=== PATIENT | female | born 1985 | race Caucasian/White ===

== ENCOUNTER 2019-08-09 18:07 | Emergency (ER) | payer OTHER ==
[~2019-08-09] VITALS: Ht 162.6 cm; Wt 110.4 kg
--- NOTE | 2019-08-09 18:32 | NUR ---
PT BROUGHT BACK FROM TRIAGE WITH CHIEF COMPLAINT OF CASE SINCE MONDAY (HX SAME), HOWEVER TODAY DEVELOPED N/V, & BLOODY STOOL WITH INTERMITTENT SOB. ERMKristy LAW AT BEDSIDE FOR EVALUATION.
[2019-08-09] MEDS ORDERED: SODIUM CHLORIDE 0.9% 1,000 ML IV ONE (18:37)
--- NOTE | 2019-08-09 18:48 | NUR ---
REPORT TO PUNEET GLOVER
[2019-08-09] MEDS ORDERED: METOCLOPRAMIDE 5 MG/ML, 2ML ONE (18:50)
[2019-08-09] MEDS ORDERED: METOCLOPRAMIDE 5 MG/ML, 2ML IVPush ONE (19:00)
[2019-08-09] MEDS ORDERED: SODIUM CHLORIDE FLUSH 10ML SYR IVF ONE (19:00)
--- NOTE | 2019-08-09 19:10 | NUR ---
PT BACK FROM CT, 2 PIVS ATTEMPTED WITHOUT SUCCESS, PT STATES "I AM A HARD STICK," WILL HAVE ANOTHER RN ATTEMPT. PT COOPERATIVE AND CALM, C/O CASE
[2019-08-09] MEDS ORDERED: KETOROLAC 30 MG/1 ML ONE (19:28)
[2019-08-09] MEDS ORDERED: KETOROLAC 30 MG/1 ML IVPush ONE (19:30)
--- NOTE | 2019-08-09 19:30 | NUR ---
IV 20G ESTABLISHED TO Jered RENEE
[2019-08-09 19:31] LABS: MICROSCOPIC INDICATED
[2019-08-09 19:38] VITALS: BP 167/78
[2019-08-09 19:38] LABS: AMPHETAMINE SCREEN, URINE Negative (Negative); BARBITURATE SCREEN, URINE Negative (Negative); BENZODIAZEPINE SCREEN, URINE Negative (Negative); CANNABINOID SCREEN, URINE Positive (Negative); COCAINE SCREEN, URINE Negative (Negative); METHADONE SCREEN, URINE Negative (Negative); OPIATE SCREEN, URINE Negative (Negative)
[2019-08-09 19:38] LABS: ALANINE AMINOTRANSFERASE 43 U/L (12-78); ANION GAP 6 mmol/L (5-15); CALCIUM 9.2 mg/dL (8.5-10.1); CHLORIDE 112 mmol/L (98-107); CREATININE 0.55 mg/dL (0.55-1.02); D-DIMER 0.34 ug/mlFEU (0.00-0.52); INTERNATIONAL NORMALIZED RATIO 0.92 (0.93-1.1); PROTHROMBIN TIME 9.7 Seconds (9.6-11.5)
[2019-08-09 19:42] LABS: ALKALINE PHOSPHATASE 113 U/L (45-117); BILIRUBIN,TOTAL 0.1 mg/dL (0.2-1.0); TOTAL PROTEIN 6.5 g/dL (6.4-8.2); TROPONIN I < 0.015 ng/mL (0.000-0.045)
[2019-08-09 19:45] LABS: BASOPHILS # (AUTO) 0.09 x10^3/uL (0-0.1); BASOPHILS % (AUTO) 1 % (0-1); EOSINOPHILS % (AUTO) 5 % (1-7); LYMPHOCYTES % (AUTO) 38 % (22-44); MD SCAN; MEAN CORPUSCULAR HEMOGLOBIN 28.6 pg (27.0-34.8); MEAN CORPUSCULAR HGB CONC 32.9 g/dL (32.4-35.8); MEAN CORPUSCULAR VOLUME 86.9 fL (80-100); MEAN PLATELET VOLUME 9.6 fL (7.4-10.4); MONOCYTES # (AUTO) 0.64 x10^3/uL (0.2-0.8); MONOCYTES % (AUTO) 8 % (2-9); NEUTROPHILS # (AUTO) 4.19 x10^3/uL (1.8-6.8); NEUTROPHILS % (AUTO) 49 % (42-75); PLATELET COUNT 200 x10^3/uL (130-400); RED BLOOD COUNT 4.94 x10^6/uL (3.82-5.3); RED CELL DISTRIBUTION WIDTH 13.5 % (9.6-15.2)
--- NOTE | 2019-08-09 20:28 | NUR ---
MEDICAL RECORDS REQ FROM [facility].
--- NOTE | 2019-08-09 21:00 | NUR ---
PT ASSISTED TO RESTROOM, STEADY GAIT AND INDEPENDENT, PT BACK TO BED WITHOUT ISSUE, NAD NOTED AT THIS TIME, PT INFORMED SHE IS STILL HOLDING FOR INPATIENT BED
--- NOTE | 2019-08-09 21:20 | NUR ---
REPORT CALLED TO MICAELA GLOVER TO ASSUME CARE OF PT TRANSFERRING TO [facility]
--- NOTE | 2019-08-09 21:29 | NUR ---
tech to room for transport, reports that refuses to leave and states that he has to stay here because he does not have enough gas/funds to get home. Aware that during the current pandemic this is simply not an option and out visiting hours are 3pm to 8pm. Pt and have discussion then call that they are going to leave and go home, apparently now having enough gas/funds to get home. Dr Corcoran aware.
[2019-08-09] MEDS ORDERED: TEMAZEPAM 15 MG CAPSULE PO PRN (22:00)
[2019-08-09] MEDS ORDERED: ACETAMINOPHEN 325 MG TABLET PO PRN (22:00)
[2019-08-09] MEDS ORDERED: hydrALAzine 20 MG/ML, 1ML IVPush PRN (22:00)
[2019-08-09] MEDS ORDERED: ONDANSETRON 2MG/ML, 2ML IVPush PRN (22:00)
[2019-08-09] MEDS ORDERED: HYDROcodone/APAP 5/325 TABLET PO PRN (22:00)
[2019-08-09] MEDS ORDERED: ASA/APAP/ CAFFEINE TABLET PO PRN (22:00)
== END 2019-08-09 21:41 | disposition left against medical advice (07) ==
LOC: ED 20:37 → UNDOADMIN 20:42 → EDIP 20:42 → ED 21:41 → EDIP 21:56 → UNDOADMIN 21:56
DX: H53.2 Diplopia (principal); H53.8 Other visual disturbances; R11.2 Nausea with vomiting, unspecified; R51 Headache; K92.1 Melena; R06.02 Shortness of breath; R00.0 Tachycardia, unspecified; R05 Cough; I10 Essential (primary) hypertension; J45.909 Unspecified asthma, uncomplicated; F17.200 Nicotine dependence, unspecified, uncomplicated; Z90.89 Acquired absence of other organs; Z90.49 Acquired absence of other specified parts of digestive tract
CPT/HCPCS: 36415; 70450; 71045; 80053; 80307; 81001; 84484; 85025; 85379; 85610; 85730; 87086; 93005; 96361; 96374; 96375; 99285; J1885; J2765; J7030

== ENCOUNTER 2019-09-09 13:24 | Emergency (ER) | payer MEDICAID ==
[~2019-09-09] VITALS: Ht 162.6 cm; Wt 103.4 kg
[2019-09-09] MEDS ORDERED: ONDANSETRON ODT 4 MG ONE (14:18)
[2019-09-09] MEDS ORDERED: HYDROmorphone 1 MG/ML, 1ML INJ ONE ×2 (14:19→15:24)
[2019-09-09] MEDS ORDERED: ONDANSETRON ODT 4 MG PO ONE (14:30)
[2019-09-09] MEDS ORDERED: SODIUM CHLORIDE 0.9% 1,000ML IV ONE (14:30)
[2019-09-09] MEDS ORDERED: HYDROmorphone 1 MG/ML, 1ML INJ IV ONE ×2 (14:30→15:30)
--- NOTE | 2019-09-09 14:30 | NUR ---
pt presents to ED with c/o headache that has been constant since 08/2019, bilateral lower back pain that is chronic in nature, and new onset chest pain and sob ,since last night. pt also suffers from seizures which are chronic, 2 in last month. last was this am. pt states she takes medication for seizures but does not have a neurologist. pt denies injury/trauma. pt is a&ox4, resps even and unlabored. pt is able to speak in full sentences without difficulty. pt is neurologically intact, no focal deficits. pt placed on all monitors, pt is nsr on monitoring analyst without ectopy. piv placed, pt medicated per emar, tolerating well. significant other at bedside.
--- NOTE | 2019-09-09 15:23 | NUR ---
urine sample collected and sent to lab. pt reports headache/chest pain/ back pain is not improved s/p dilaudid, "it didn't touch it." BILLY Florence notified. report given back to primary RN Val who is resuming care.
[2019-09-09 15:30] LABS: MICROSCOPIC INDICATED
--- NOTE | 2019-09-09 15:30 | NUR ---
Report from Vickie GLOVER. Pt resting in bed, AMITA. Pt reports 8/10 CASE and low back pain. Pt medicated for continued pain per MAR, denies other needs.
[2019-09-09] MEDS ORDERED: METHOCARBAMOL 750 MG TABLET ONE (15:56)
[2019-09-09] MEDS ORDERED: METHOCARBAMOL 750 MG TABLET PO ONE (16:00)
--- NOTE | 2019-09-09 16:01 | NUR ---
Pt medicated for continued pain per MAR.
[2019-09-09] MEDS ORDERED: METOCLOPRAMIDE 5 MG/ML, 2ML ONE (16:54)
[2019-09-09] MEDS ORDERED: LORazepam 2 MG/ML, 1ML ONE (16:55)
[2019-09-09] MEDS ORDERED: LORazepam 2 MG/ML, 1ML IVPush ONE (17:00)
[2019-09-09] MEDS ORDERED: METOCLOPRAMIDE 5 MG/ML, 2ML IVPush ONE (17:00)
--- NOTE | 2019-09-09 17:02 | NUR ---
Pt states pain meds have worn off and is still having 8/10 CASE and low back pain. Pt also c/o itching, medicated per APR.
--- NOTE | 2019-09-09 17:05 | NUR ---
PA made aware of pt's request for additional pain medications.
[2019-09-09 17:45] VITALS: BP 111/74
== END 2019-09-09 17:50 | disposition home or self-care (01) ==
LOC: ED 17:10
DX: G43.909 Migraine, unspecified, not intractable, without status migrainosus (principal); R06.00 Dyspnea, unspecified; M54.9 Dorsalgia, unspecified; G89.29 Other chronic pain; R00.0 Tachycardia, unspecified; F17.210 Nicotine dependence, cigarettes, uncomplicated; I10 Essential (primary) hypertension
CPT/HCPCS: 71045; 81001; 93005; 96374; 96375; 96376; 99285; J1170; J2060; J2765; J7030; Q0162

== ENCOUNTER 2019-10-18 01:50 | Emergency (ER) | payer MEDICAID ==
[~2019-10-18] VITALS: Ht 162.6 cm; Wt 99.0 kg
[2019-10-18 01:54] VITALS: BP 102/72
--- NOTE | 2019-10-18 02:29 | NUR ---
Valerie jose in [facility] - 10/18/19 at 0312 by [facility] WITH K 2.2
--- NOTE | 2019-10-18 03:29 | NUR ---
THIS IS A 34Y F THAT COMES IN FOR C/O CASE, ABD PAIN, N/V, FLANK PAIN, SHAKES. PT RESTING ON GURNEY LIGHTS OFF SPOUSE AT BEDSIDE FOR SUPPORT. PT CONNECTED TO MONITORING, MD AT BEDSIDE FOR ASSESSMENT.
[2019-10-18] MEDS ORDERED: ONDANSETRON 2MG/ML, 2ML IVPush ONE (03:30)
[2019-10-18] MEDS ORDERED: KETOROLAC 30 MG/1 ML IVPush ONE (03:30)
[2019-10-18] MEDS ORDERED: KETOROLAC 30 MG/1 ML ONE (03:35)
[2019-10-18] MEDS ORDERED: ONDANSETRON 2MG/ML, 2ML ONE (03:35)
--- NOTE | 2019-10-18 03:48 | NUR ---
PT MEDICATED PER APR 10 RIGHTS VERIFIED, PT TOLERATED WELL.
[2019-10-18 03:51] LABS: BASOPHILS # (AUTO) 0.05 x10^3/uL (0-0.1); BASOPHILS % (AUTO) 0 % (0-1); EOSINOPHILS # (AUTO) 0.27 x10^3/uL (0-0.4); EOSINOPHILS % (AUTO) 2 % (1-7); LYMPHOCYTES # (AUTO) 4.12 x10^3/uL (1-3.4); LYMPHOCYTES % (AUTO) 31 % (22-44); MD NO; MEAN CORPUSCULAR HEMOGLOBIN 27.5 pg (27.0-34.8); MEAN CORPUSCULAR HGB CONC 32.1 g/dL (32.4-35.8); MEAN CORPUSCULAR VOLUME 85.9 fL (80-100); MEAN PLATELET VOLUME 8.3 fL (7.4-10.4); MONOCYTES # (AUTO) 1.15 x10^3/uL (0.2-0.8); MONOCYTES % (AUTO) 9 % (2-9); NEUTROPHILS # (AUTO) 7.56 x10^3/uL (1.8-6.8); NEUTROPHILS % (AUTO) 58 % (42-75); PLATELET COUNT 299 x10^3/uL (130-400); RED BLOOD COUNT 4.97 x10^6/uL (3.82-5.3); RED CELL DISTRIBUTION WIDTH 14.6 % (9.6-15.2)
[2019-10-18 04:03] LABS: ALBUMIN 2.9 g/dL (3.4-5.0); ANION GAP 7 mmol/L (5-15); CALCIUM 8.9 mg/dL (8.5-10.1); CHLORIDE 104 mmol/L (98-107)
[2019-10-18 04:09] LABS: ALANINE AMINOTRANSFERASE 90 U/L (12-78); ALKALINE PHOSPHATASE 140 U/L (45-117); BILIRUBIN,TOTAL 0.2 mg/dL (0.2-1.0); CREATININE 0.97 mg/dL (0.55-1.02); TOTAL PROTEIN 6.6 g/dL (6.4-8.2)
--- NOTE | 2019-10-18 04:17 | NUR ---
ALL RESULTS BACK CHART UP FOR RECHECK AWAITING FURTHER ORDERS
--- NOTE | 2019-10-18 05:15 | NUR ---
Patient/Caregiver given discharge instructions and they have confirmed that they understand the instructions. Patient ambulatory with steady gait.
--- NOTE | 2019-10-18 05:15 | NUR ---
pt spouse shouting at rn sts she needs a ct and more tests and she has meds at home, and this is "bullshit visit"
== END 2019-10-18 05:19 | disposition home or self-care (01) ==
LOC: ED 05:00
DX: G43.909 Migraine, unspecified, not intractable, without status migrainosus (principal); R11.2 Nausea with vomiting, unspecified; R10.9 Unspecified abdominal pain; M54.5 Low back pain; I10 Essential (primary) hypertension; J45.909 Unspecified asthma, uncomplicated; G89.29 Other chronic pain; F17.210 Nicotine dependence, cigarettes, uncomplicated; Z90.49 Acquired absence of other specified parts of digestive tract; Z90.89 Acquired absence of other organs
CPT/HCPCS: 36415; 80053; 83690; 84703; 85025; 96374; 96375; 99284; 99406; J1885; J2405